=== PATIENT | male | born 1955 | race Caucasian/White ===

== ENCOUNTER 2022-09-12 13:35 | Emergency (ER) | payer MEDICARE, OTHER ==
--- NOTE | 2022-09-12 14:04 | ED Physician Documentation ---
PD HPI CHEST PAIN - Stated complaint Stated Complaint: CHEST PX - Chief complaint Chief Complaint: Cardiac - History obtained from History obtained from: Patient - History of Present Illness Timing - onset: How many hours ago (4), Today Timing - onset during: Rest Timing - duration: Hours Timing - details: Abrupt onset, Now resolved, Waxing and waning Quality: Tightness, Aching. No: Sharp, Tearing Location: Substernal, Left chest Radiation: Neck Improved by: No: Rest Worsened by: No: Exertion, Inspiration, Movement, Palpation Associated symptoms: Feeling faint / dizzy. 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 Last seen June this years without any change in meds.) Review of Systems Constitutional: denies: Fever, Chills Nose: denies: Rhinorrhea / runny nose, Congestion Throat: denies: Sore throat Cardiac: denies: Palpitations, Pedal edema, Calf pain Respiratory: denies: Cough GI: denies: Abdominal Pain, Nausea, Vomiting Skin: denies: Rash, Lesions Neurologic: reports: Generalized weakness. denies: Focal weakness, Near syncope PD PAST MEDICAL HISTORY - Past Medical History Cardiovascular: Hypertension, High cholesterol Respiratory: None Neuro: None Endocrine/Autoimmune: None - Allergies Allergies/Adverse Reactions: Allergies Allergy/AdvReac Type Severity Reaction Status Date / Time No Known Drug Allergies Allergy Verified 09/12/22 13:46 PD ED PE NORMAL - Vitals Vital signs reviewed: Yes - General General: Alert and oriented X 3, No acute distress, Well developed/nourished - Neck Neck: Supple, no meningeal sign, No adenopathy - Cardiac Cardiac: RRR, No murmur, No rub - Respiratory Respiratory: No respiratory distress, Clear bilaterally - Abdomen Abdomen: Normal bowel sounds, Soft, Non tender, Non distended - Derm Derm: Normal color, Warm and dry - Extremities Extremities: No edema, No calf tenderness / cord - Neuro Neuro: Alert and oriented X 3, No motor deficit, Normal speech Results - Vitals Vitals: Vital Signs - 24 hr 09/12/22 09/12/22 09/12/22 13:41 14:21 14:50 Temperature 36.6 C Heart Rate 94 63 98 Respiratory 20 18 19 Rate Blood Pressure 137/76 H 129/79 O2 Saturation 100 99 96 09/12/22 09/12/22 09/12/22 15:02 15:14 16:35 Temperature Heart Rate 85 88 Respiratory 17 18 17 Rate Blood Pressure 122/75 103/75 O2 Saturation 100 100 09/12/22 16:39 Temperature Heart Rate 62 Respiratory 16 Rate Blood Pressure 98/65 O2 Saturation 100 Oxygen O2 Source Room air - EKG (time done) 13:41 EKG releavant findings:: EKG personally interpreted by author of this note. Relevant findings are: Rate: Rate (enter#) (78) Rhythm: NSR [place]: Normal Intervals: Normal [place] QRS: Normal Ischemia: Normal ST segments. No: ST elevation c/w ischemia, ST depression - Labs Labs: Laboratory Tests 09/12/22 09/12/22 09/12/22 14:43 14:43 14:43 WBC 6.4 RBC 4.21 L Hgb 13.3 L Hct 39.8 L MCV 94.5 H MCH 31.6 H MCHC 33.4 RDW 12.9 Plt Count 235 MPV 9.2 Neut # (Auto) 3.7 Lymph # (Auto) 2.0 [place] # (Auto) 0.6 Eos # (Auto) 0.1 Baso # (Auto) 0.0 Absolute Nucleated RBC 0.00 Nucleated RBC % 0.0 Sodium 139 Potassium 3.7 Chloride 104 Carbon Dioxide 29 Anion Gap 6.0 BUN 22 H Creatinine 1.4 H Estimated GFR (MDRD) 51 L Glucose 106 H Calcium 9.2 Total Bilirubin 0.6 AST 22 ALT 26 Alkaline Phosphatase 40 L Troponin I High Sens < 2.3 L B-Natriuretic Peptide Total Protein 6.5 L Albumin 3.8 Globulin 2.7 Albumin/Globulin Ratio 1.4 Lipase 34 09/12/22 14:43 WBC RBC Hgb Hct MCV MCH MCHC RDW Plt Count MPV Neut # (Auto) Lymph # (Auto) [place] # (Auto) Eos # (Auto) Baso # (Auto) Absolute Nucleated RBC Nucleated RBC % Sodium Potassium Chloride Carbon Dioxide Anion Gap BUN Creatinine Estimated GFR (MDRD) Glucose Calcium Total Bilirubin AST ALT Alkaline Phosphatase Troponin I High Sens B-Natriuretic Peptide 42 Total Protein Albumin Globulin Albumin/Globulin Ratio Lipase - Rads (name of study) chest xray Relevant Findings:: Prelim report reviewed, EMP independent interpretation of test (no acute process. ), See rad report PD Medical Decision Making - ED course Complexity details: reviewed results, considered differential (chest pain/discomfort, nonexertional. Can assess for TX/ACS with labs/trop/CXR. Other considerations would be GI. Does not sounds musculoskeletal, nor pleuritic. ), d/w patient Reviewed Lab Results: ECG, CXR, troponin and BNP are normal. This should exclude the major cardiopulmonary causes. Departure - Departure Disposition: 01 Home, Self Care Clinical Impression: Chest pain Condition: Stable Record reviewed to determine appropriate education?: Yes Instructions: ED Chest Pain Atypical Unkn Cause Follow-Up: RUPINDER BUSTAMANTE MD [Physician No Access] - Comments: Your EKG is normal as is your chest x-ray. Your blood tests including troponin and BNP are normal as well. No signs of acute heart attack, heart failure, fluid in the lungs/edema, pneumonia. Your blood tests also indicate normal pancreas and liver which sometimes can cause some chest discomfort. At this point acute heart attack and heart failure excluded. Your pattern is not indicative of angina. That said I would contact your senior copywriter office tomorrow and update them on the findings. See if they would want to see you in follow-up more promptly and possibility of a stress test to fully ensure no apparent heart disease/angina. It does seem low suspicion at this point. Other considerations would be potentially esophageal pain like reflux or esophagitis. I would suggest taking an acid reducing medicine such as Pepcid/famotidine twice daily for the next week and then once daily after that for another week or 2. Also add antacid such as Maalox or Mylanta 2 or 3 times daily and particularly before bed over the next week or so as well. If you have recurring more significant symptoms and in particular any exertional, you can try your nitroglycerin at home and see if it helps with your symptoms. Return to the ER if worsening symptoms that are worrisome. Otherwise follow-up with your senior copywriter. Discharge Date/Time: 09/12/22 16:40
[2022-09-12] MEDS ORDERED: NITROGLYCERIN SL 0.4 MG TABLET SL STA (14:37)
[2022-09-12 14:48] LABS: BASOPHILS % (AUTO) 0.6 %; EOSINOPHILS # (AUTO) 0.1 10^3/uL (0.0-0.7); EOSINOPHILS % (AUTO) 0.8 %; HCT - HEMATOCRIT 39.8 % (42.0-52.0); HGB - HEMOGLOBIN 13.3 g/dL (14.0-18.0); LYMPHOCYTES % (AUTO) 31.4 %; MEAN CORPUSCULAR HEMOGLOBIN 31.6 pg (27.0-31.0); MEAN CORPUSCULAR HGB CONC 33.4 g/dL (32.0-36.0); MEAN CORPUSCULAR VOLUME 94.5 fL (80.0-94.0); MEAN PLATELET VOLUME 9.2 fL (7.4-11.4); MONOCYTES # (AUTO) 0.6 10^3/uL (0.0-1.0); MONOCYTES % (AUTO) 9.4 %; NEUTROPHILS # (AUTO) 3.7 10^3/uL (1.5-6.6); NEUTROPHILS % (AUTO) 57.3 %; PLT - PLATELET COUNT 235 10^3/uL (130-450); RED BLOOD COUNT 4.21 10^6/uL (4.70-6.10); RED CELL DISTRIBUTION WIDTH 12.9 % (12.0-15.0); WHITE BLOOD COUNT 6.4 x10^3/uL (4.8-10.8)
[2022-09-12 15:03] LABS: ALBUMIN 3.8 g/dL (3.2-5.5); ALBUMIN/GLOBULIN RATIO 1.4 (1.0-2.2); BILIRUBIN,TOTAL 0.6 mg/dL (0.2-1.0); CALCIUM 9.2 mg/dL (8.5-10.3); CREATININE 1.4 mg/dL (0.6-1.2); POTASSIUM 3.7 mmol/L (3.5-5.0); TOTAL PROTEIN 6.5 g/dL (6.7-8.2)
--- NOTE | 2022-09-12 15:27 | XRAY Report ---
PROCEDURE: Chest 1 View X-Ray INDICATIONS: Chest Pain TECHNIQUE: One view of the chest was acquired. COMPARISON: None. FINDINGS: Surgical changes and devices: None. Lungs and pleura: No pleural effusions or pneumothorax. Lungs are clear. Mediastinum: Mediastinal contours appear normal. Heart size is normal. Bones and chest wall: No suspicious bony lesions. Overlying soft tissues appear unremarkable. IMPRESSION: No acute cardiopulmonary process. Reviewed by: Mike Aquino MD on 09/12/2022 3:26 PM PDT Approved by: Mike Aquino MD on 09/12/2022 3:26 PM PDT Station ID: [id number]
[2022-09-12 16:44] VITALS: BP 98/65
== END 2022-09-12 16:40 | disposition home or self-care (01) ==
LOC: ED 13:35
DX: R07.89 Other chest pain (principal); I10 Essential (primary) hypertension; E78.00 Pure hypercholesterolemia, unspecified
CPT/HCPCS: 36415; 71045; 80053; 83690; 83880; 84484; 85025; 93005; 99283; 99284; A9270